=== PATIENT | male | born 1945 | race Caucasian/White ===

== ENCOUNTER → 2021-12-28 08:10 | Outpatient (CLI) | payer MEDICARE, SELFPAY ==
[2021-12-28 19:03] LABS: Albumin 5.1 g/dL (3.5-5.0); Albumin Globulin Ratio 1.5 (1.0-2.8); Alkaline Phosphatase 91 U/L (38-126); Aspartate Aminotransferase 49 IU/L (17-59); Blood Urea Nitrogen 17 mg/dL (9-20); Calcium 9.8 mg/dL (8.4-10.2); Carbon Dioxide 16 mmol/L (22-32); Chloride 101 mmol/L (98-107); Cholesterol 205 mg/dL (140-199); Estimated Glomerular Filt Rate > 60.0 mL/min (>60); Globulin 3.4 g/dL (1.7-4.1); Glucose 160 mg/dL (80-110); HDL Cholesterol 49 mg/dL (40-60); HEMOLYSIS < 15 (0-50); LDL Cholesterol Calculated 137 mg/dL (<100); Potassium 3.6 mmol/L (3.4-5.1); Sodium 141 mmol/L (137-145); Total Protein 8.5 g/dL (6.3-8.2); Triglycerides 95 mg/dL (35-150)
[2021-12-28 19:09] LABS: Alanine Aminotransferase 45 IU/L (<50)
[2021-12-28 19:15] LABS: Add Manual Diff / Slide Review NO; Basophils Absolute Auto 100 /uL (0-100); Basophils Percent Auto 1.1 % (0-2); Eosinophils Absolute Auto 200 /uL (0-450); Eosinophils Percent Auto 1.6 % (2-4); Hematocrit 39.4 % (41-53); Hemoglobin 13.3 g/dL (13.5-17.5); Lymphocytes Absolute Auto 4000 /uL (1100-4500); Lymphocytes Percent Auto 41.9 % (25-40); Mean Corpuscular HGB Conc 33.7 % (30-36); Mean Corpuscular Hemoglobin 32.9 PG (26-34); Mean Corpuscular Volume 97.5 fL (80-100); Monocytes Absolute Auto 1300 /uL (0-900); Monocytes Percent Auto 13.9 % (3-14); Neutrophils Absolute Auto 4000 /uL (1500-7000); Neutrophils Percent Auto 41.5 % (50-75); Platelet Count 282 X10^3/uL (150-400); Red Blood Cell Count 4.05 X10^6/uL (4.5-5.9); Red Cell Distribution Width 14.5 % (11.6-14.8); White Blood Cell Count 9.5 X10^3/uL (4.5-11.0)
[2021-12-28 19:20] LABS: TSH w/ Reflex to FT4 4.52 uIU/mL (0.47-4.68)
== END ==
PROVIDERS: Family Provider Family Medicine; PCP Physician Assistant; Visit Provider Physician Assistant
DX: Z12.5 Encounter for screening for malignant neoplasm of prostate (principal); Z79.899 Other long term (current) drug therapy; E03.9 Hypothyroidism, unspecified; E78.00 Pure hypercholesterolemia, unspecified; I10 Essential (primary) hypertension
CPT/HCPCS: 80053; 80061; 84443; 85025; G0103

== ENCOUNTER → 2022-01-12 12:37 | Outpatient (CLI) | payer MEDICARE, SELFPAY ==
--- NOTE | 2022-02-02 15:32 | PM.CARDMON.1 ---
Sand Technician Report Referral & Results Date Patient Seen: 01/12/22 Requesting provider: Sarah Zamudio Indication: Palpitations Duration of monitoring (days): 14 Diary information: There was 1 patient event associated with sinus rhythm only Data: Minimum heart rate identified was 30 beats per minute at 07:13 on 01/15/2022 Maximum sinus heart rate was 153 beats per minute at 21:08 on 01/13/2022 Maximum overall heart rate was 172 beats per minute at 14:26 on 01/14/2022 during a run of atrial fibrillation Patient did have atrial fibrillation identified on this study that was less than 1% of identified beats. Heart rate 95-172 beats per minute and the longest duration was 12 minutes and 24 seconds long There were 37 episodes of SVT the fastest being the 4 beat run at 156 beats per minute the longest lasting 12.8 seconds Less than 1% of identified beats were ventricular or supraventricular ectopic in origin, which would classify them as rare. Impression: 14 day registered nurse cardiac demonstrating rare episodes of atrial fibrillation as above. Also with very rare very brief runs of SVT Clinical correlation suggested
== END ==
PROVIDERS: Family Provider Family Medicine; PCP Physician Assistant; Referring Provider Physician Assistant; Visit Provider Physician Assistant
DX: R00.2 Palpitations (principal)
CPT/HCPCS: 93246; 93248

== ENCOUNTER → 2022-03-21 07:07 | Outpatient (CLI) | payer MEDICARE, SELFPAY ==
[2022-03-21 19:14] LABS: COVID19 - ORCAS (NP or Nasal) Negative (Negative)
== END ==
PROVIDERS: Family Provider Family Medicine; PCP Physician Assistant; Visit Provider Physician Assistant
DX: Z20.822 Contact with and (suspected) exposure to COVID-19 (principal)
CPT/HCPCS: C9803; U0003

== ENCOUNTER 2022-03-23 09:38 | Day surgery (SDC) | payer MEDICARE, SELFPAY ==
[2022-03-23] VITALS (7 sets, daily range): BP systolic 90–152; BP diastolic 46–77; PULSE 15–85; RESP 12–16; TEMP 36.4–37.3; O2SAT 97–100; BMI 25.9
--- NOTE | 2022-03-23 | PATH_ITS ---
[facility] Accession Number: [id number] . 01 Material submitted: . colon - DESCENDING COLON POLYP . 01 Diagnosis: Descending Colon, Polyp, Biopsy: Tubular adenoma. MRV 03/27/2022 1733 Local . 01 Electronically signed: . Miguelina Patel MD, Pathologist NPI- [id number] . 01 Gross description: . DESCENDING COLON POLYP: Received in formalin are 2 fragment(s) of staples, soft tissue measuring 0.7 x 0.5 x 0.1 cm to 0.2 x 0.1 x 0.1 cm submitted entirely in 1 cassette(s) /CPE 03/24/2022 0828 Local . 01 Pathologist provided ICD-10: D12.4 . 01 CPT . 524864 Performed at: 01 [facility] [address] [place] [id number] MD Nehemias Oglesby MD Phone: [phone]
[2022-03-23] MEDS: LACTATED RINGERS 1,000 ML 42 ML IV (10:53)
--- NOTE | 2022-03-23 12:06 | PM.HP.1 ---
History of Present Illness History of Present Illness Date Patient Seen: 03/23/22 Time Patient Seen: 12:07 Chief complaint: DX COLONOSCOPY Narrative: Power is a 76-year-old man who has never had a colonoscopy. He had a recent positive Cologuard test. He was having several episodes of constipation with hard bowel movements prior to that test being performed. He has no known family members with colon cancer. Patient History Medical History Cataracts, bilateral (~2018) Chicken pox Counseling, unspecified Mumps Skin spots, red Family & Social History Family History Father History of heart disease Hypertension Mother Hypertension Shingles Brother History of heart disease Grandfather History of heart disease Grandmother History of heart disease Grandfather Cancer History of heart disease Grandmother Renal failure Tobacco & Substance use: Tobacco type cigarettes Smoking Status Never smoker alcohol intake frequency holiday/special occasion Substance Use Type does not use Meds Home Medications and Allergies Home Medications Medication Instructions Recorded Confirmed Type aspirin 81 mg tablet,delayed 81 mg PO DAILY 12/14/21 03/23/22 History release lisinopril 20 mg tablet 20 mg PO DAILY #90 tabs 02/13/22 03/23/22 Rx sodium,potassium,mag sulfates 17.5 See Rx Instructions PO .COMPLEX 03/06/22 Rx gram-3.13 gram-1.6 gram oral soln #354 mL (Suprep Bowel Prep Kit) Allergies Allergy/AdvReac Type Severity Reaction Status Date / Time No Known Drug Allergies Allergy Verified 02/13/22 10:33 Exam Vital Signs (past 8 hours): - 03/23/22 10:32 Temperature 97.7 F Pulse Rate 85 Respiratory Rate 16 Blood Pressure 152/77 H Pulse Oximetry 99 Oxygen Delivery Method Room Air Oxygen Delivery Method Room Air Const General: comfortable Resp Effort & Inspection: normal respiratory effort Assessment & Plan Assessment and plan (1) Colon cancer screening: Status: Acute Plan 76-year-old man who is here for colon cancer screening today. We reviewed the risks, benefits and rationale for a colonoscopy and he would like to proceed. COVID-19 COVID-19 status: Negative Result date/Date tested (Pos, Neg/Pending): 03/22/22 Time Spent With Patient Critical Care time: I spent a total of [] minutes of critical care time on this patient's care today; this time is exclusive of procedural time.
[2022-03-23] MEDS: fentaNYL 250 MCG/5 ML INJ 175 MCG IV (12:22)
[2022-03-23] MEDS: MIDAZOLAM 5 MG/5 ML VIAL 6 MG IV (12:22)
--- NOTE | 2022-03-23 12:41 | P.OP.COLON_ITS ---
Operative Date/Time/Diagnoses Date of procedure: 03/23/22 Time of procedure: 12:41 Pre-op diagnosis: Positive Cologuard test Post-op diagnosis: same Procedure & Clinicians Surgeon: Juan Daniel Lin Procedure Notes Procedure in detail: Surgeon: Juan Daniel Lin MD Procedure: The patient was brought to the endoscopy suite, placed in left lateral decubitus position. The patient was connected to monitoring devices. A time-out was performed. Sedation was administered. Once the patient was adequately sedated, a digital rectal exam was performed and was normal. The s cope was then inserted and advanced to the cecum where the appendiceal orifice was identified and photographed. The scope was then slowly withdrawn over greater than 6 minutes. The mucosa was thoroughly inspected. There was 1 small polyp in the descending colon which was about 6 mm. This was removed with a cold snare. The scope was retroflexed in the rectum. No abnormalities were noted. The scope was straightened and removed. The patient was awakened and brought to recovery. Versed: 6 mg Fentanyl: 175 mcg EBL: 5 mL Findings: Descending colon polyp about 6 mm Scope withdrawal time: 11 Sedation minutes: 26 Post-procedure Recommendations: Will call with biopsy results Disposition: PACU
== END 2022-03-23 13:37 | disposition home or self-care (01) ==
PROVIDERS: Family Provider Family Medicine; PCP Physician Assistant; Referring Provider Surgery; Visit Provider Surgery
PROC: 0DJD8ZZ Inspection of Lower Intestinal Tract, Via Natural or Artificial Opening Endoscopic (ICD-10-PCS; CPT 45378; principal; 2022-03-23 11:30)
DX: D12.4 Benign neoplasm of descending colon (principal)
CPT/HCPCS: 45385; 99152; 99153; J2250; J3010

== ENCOUNTER → 2022-12-11 14:27 | Outpatient (CLI) | payer MEDICARE, SELFPAY ==
--- NOTE | 2022-12-11 14:29 | DI.US.S_ITS ---
PROCEDURE: US SCROTUM INDICATIONS: RIGHT SCROTAL ACHING AND SWELLING TECHNIQUE: Real-time scanning was performed of the scrotum and testicles, with image documentation. Color and pulse Doppler interrogation was performed of both testicles. COMPARISON: None. FINDINGS: Right: Testicle is normal in size at 2.7 x 2.3 x 2.9 cm, and homogenous in echotexture. Epididymis is normal in overall size and morphology. Trace hydrocele noted. Overlying scrotal skin is normal in thickness. 1.8 x 1.6 x 2.5 cm epididymal cyst Left: Testicle is normal in size at 2.5 x 1.6 x 2.7 cm, and homogeneous in echotexture. Epididymis is normal in overall size and morphology. No hydrocele or varicoceles. Overlying scrotal skin is normal in thickness. Small epididymal cyst measures 0.6 x 0.5 x 0.4 cm Doppler: Color and pulse Doppler demonstrate normal and symmetric arterial flow in both testicles. IMPRESSION: 2.5 cm right epididymal cyst Approved by: Quoc Gregorio M.D. on 12/11/2022 at 17:58
== END ==
PROVIDERS: Family Provider Family Medicine; PCP Physician Assistant; Referring Provider Physician Assistant; Visit Provider Physician Assistant
DX: N50.3 Cyst of epididymis (principal); N50.811 Right testicular pain
CPT/HCPCS: 76870

== ENCOUNTER → 2023-02-13 09:48 | Outpatient (CLI) | payer MEDICARE, SELFPAY ==
[2023-02-13 19:15] LABS: Add Manual Diff / Slide Review NO; Basophils Absolute Auto 0 /uL (0-100); Basophils Percent Auto 0.6 % (0-2); Eosinophils Absolute Auto 100 /uL (0-450); Eosinophils Percent Auto 1.7 % (2-4); Hematocrit 34.2 % (41-53); Hemoglobin 11.8 g/dL (13.5-17.5); Lymphocytes Absolute Auto 900 /uL (1100-4500); Lymphocytes Percent Auto 27.4 % (25-40); Mean Corpuscular HGB Conc 34.6 % (30-36); Mean Corpuscular Hemoglobin 33.6 PG (26-34); Mean Corpuscular Volume 96.9 fL (80-100); Monocytes Absolute Auto 300 /uL (0-900); Monocytes Percent Auto 10.5 % (3-14); Neutrophils Absolute Auto 2000 /uL (1500-7000); Neutrophils Percent Auto 59.8 % (50-75); Platelet Count 172 X10^3/uL (150-400); Red Blood Cell Count 3.52 X10^6/uL (4.5-5.9); Red Cell Distribution Width 14.1 % (11.6-14.8); White Blood Cell Count 3.3 X10^3/uL (4.5-11.0)
[2023-02-13 19:23] LABS: HEMOLYSIS < 15 (0-50); Iron 80 ug/dL (49-181)
[2023-02-13 19:27] LABS: Cholesterol 171 mg/dL (140-199); HDL Cholesterol 49 mg/dL (40-60); LDL Cholesterol Calculated 102 mg/dL (<100); Triglycerides 99 mg/dL (35-150)
[2023-02-13 19:29] LABS: Alanine Aminotransferase 32 IU/L (<50); Albumin 4.1 g/dL (3.5-5.0); Albumin Globulin Ratio 1.3 (1.0-2.8); Alkaline Phosphatase 94 U/L (38-126); Aspartate Aminotransferase 38 IU/L (17-59); Bilirubin Total 1.4 mg/dL (0.2-1.3); Blood Urea Nitrogen 15 mg/dL (9-20); Calcium 8.9 mg/dL (8.4-10.2); Carbon Dioxide 28 mmol/L (22-32); Chloride 103 mmol/L (98-107); Estimated Glomerular Filt Rate > 60 mL/min (>60); Globulin 3.2 g/dL (1.7-4.1); Glucose 91 mg/dL (80-110); HEMOLYSIS < 15 (0-50); Potassium 4.1 mmol/L (3.4-5.1); Sodium 139 mmol/L (137-145); Total Protein 7.3 g/dL (6.3-8.2)
[2023-02-13 19:33] LABS: Percent Iron Saturation 31 % (20-50); Total Iron Binding Capacity 262 ug/dL (261-462); Transferrin 203 mg/dL (206-381)
[2023-02-13 19:58] LABS: Prostate Specific Antigen Scrn 1.51 ng/mL (0.1-4.0)
[2023-02-13 19:59] LABS: Ferritin 143 ng/mL (18-464)
[2023-02-15 09:09] LABS: x Labcorp Estim. Avg Glu (eAG) 100 mg/dL (.); x Labcorp Hemoglobin A1c 5.1 % (4.8-5.6)
== END ==
PROVIDERS: Family Provider Family Medicine; PCP Physician Assistant; Visit Provider Physician Assistant
DX: I10 Essential (primary) hypertension; D49.2 Neoplasm of unspecified behavior of bone, soft tissue, and skin; Z12.5 Encounter for screening for malignant neoplasm of prostate; D64.9 Anemia, unspecified; E03.9 Hypothyroidism, unspecified; I49.1 Atrial premature depolarization; I49.9 Cardiac arrhythmia, unspecified; R17 Unspecified jaundice; R19.5 Other fecal abnormalities; R73.9 Hyperglycemia, unspecified; E78.00 Pure hypercholesterolemia, unspecified
CPT/HCPCS: 80053; 80061; 82728; 83036; 83540; 83550; 85025; G0103

== ENCOUNTER → 2023-02-16 13:38 | Outpatient (CLI) | payer MEDICARE, SELFPAY ==
[2023-02-19 16:51] LABS: Fecal Immunochemical Test Positive (Negative)
== END ==
PROVIDERS: Family Provider Family Medicine; PCP Physician Assistant; Visit Provider Physician Assistant
DX: D64.9 Anemia, unspecified (principal); Z12.11 Encounter for screening for malignant neoplasm of colon
CPT/HCPCS: 82274

== ENCOUNTER → 2023-02-19 08:22 | Outpatient (CLI) | payer MEDICARE, SELFPAY ==
[2023-02-19 20:07] LABS: Hematocrit 35.9 % (41-53); Hemoglobin 12.4 g/dL (13.5-17.5); Mean Corpuscular HGB Conc 34.5 % (30-36); Mean Corpuscular Hemoglobin 33.1 PG (26-34); Mean Corpuscular Volume 95.9 fL (80-100); Platelet Count 206 X10^3/uL (150-400); Red Blood Cell Count 3.74 X10^6/uL (4.5-5.9); Red Cell Distribution Width 13.8 % (11.6-14.8); White Blood Cell Count 3.8 X10^3/uL (4.5-11.0)
[2023-02-19 21:01] LABS: Neutrophils Absolute Manual 2204 /uL (3000-5900); Total Cells Counted 100
[2023-02-19 21:02] LABS: RBC Morphology Normal Morphology
[2023-02-19 21:12] LABS: Vitamin B12 477 pg/mL (239-931)
== END ==
PROVIDERS: Family Provider Family Medicine; PCP Physician Assistant; Visit Provider Physician Assistant
DX: R79.9 Abnormal finding of blood chemistry, unspecified (principal); D64.9 Anemia, unspecified
CPT/HCPCS: 82607; 85025

== ENCOUNTER 2023-03-14 12:43 | Day surgery (SDC) | payer MEDICARE, SELFPAY ==
--- NOTE | 2023-03-14 | PATH_ITS ---
[facility] Accession Number: [id number] No. of containers..03 Tissue . 01 Material submitted: . PART A: duodenum - DUODENAL BIPSY PART B: stomach - PROXIMAL GREATER CURVE PART C: esophagus - ESOPHAGUS BIOPSY . 01 Clinical history: . A)R/O CELIAC B) GASTRITIS . 01 Diagnosis: A. Duodenum, Biopsy: Duodenal mucosa with no diagnostic abnormality. Negative for active inflammation, features of sprue, dysplasia, or malignancy. . B. Proximal Greater Curve, Stomach Biopsy: Acute erosive gastritis. No evidence of Helicobacter on H/E stain. Negative for intestinal metaplasia. Negative for dysplasia and malignancy. Please see comment. . C. 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 Negative for dysplasia and malignancy. [facility] 03/19/2023 1224 Local . 01 Comment: An immunohistochemical stain for Helicobacter will be performed and the results reported as an addendum. . 01 Electronically signed: . Miguelina Patel MD, Pathologist NPI- [id number] . 01 Gross description: . Part A: DUODENAL BIPSY: Received in formalin are 2 fragment(s) of staples, soft tissue measuring 0.1 x 0.1 x 0.1 cm to 0.3 x 0.2 x 0.2 cm submitted entirely in 1 cassette(s) Part B: PROXIMAL GREATER CURVE : Received in formalin are multiple fragment(s) of staples, soft tissue measuring 0.1 x 0.1 x 0.1 cm to 0.4 x 0.2 x 0.2 cm submitted entirely in 1 cassette(s) Part C: ESOPHAGUS BIOPSY: Received in formalin is 2 fragment(s) of staples, soft tissue measuring 0.1 x 0.1 x 0.1 cm to 0.2 x 0.2 x 0.2 cm submitted entirely in 1 cassette(s) /HILARIO 03/16/2023 [facility] . 01 Pathologist provided ICD-10: K29.50, D50.0, K22.70 . 01 CPT . 364256, 129124, 910532, W07531 Specimen Comment: A courtesy copy of this report has been sent to [phone] Performed at: 01 [facility] [address] [place] [address], [place], [place] [id number] MD Nehemias Oglesby MD Phone: [phone]
[2023-03-14 13:16] VITALS: BP 126/67; PULSE 106; RESP 17; TEMP 36.1; O2SAT 99; BMI 25.3
[2023-03-14] MEDS: LACTATED RINGERS 1,000 ML 42 ML IV (13:24)
--- NOTE | 2023-03-14 13:39 | PM.PREOP ---
Pre-operative Note COVID-19 COVID-19 status: Negative Interval Note History & Physical reviewed/Exam performed by Physician: Yes Changes to H&P: No ASA Class (for procedural sedation): III
--- NOTE | 2023-03-14 13:40 | P.OP.EGD_ITS ---
Operative Date/Time/Diagnoses Date of procedure: 03/14/23 Pre-op diagnosis: See indication and findings Procedure & Clinicians Study performed: EGD Indications: Cologuard positive stools with anemia and negative colonoscopy Surgeon: Kevin Jarrell Procedure Notes Procedure in detail: After informed consent was obtained the patient was placed in left lateral decubitus position. Video upper scope was placed into the oropharynx and with the patient's help swallowed into the esophagus. The esophagus stomach and d uodenum were carefully examined. On withdrawal, retroflexed view the GE junction was performed. The scope was removed. The patient tolerated procedure well. Blood loss none Complications none Sedation mac Findings 1. Normal body of the esophagus. The squamocolumnar junction was perfectly circular except for 1 small aspect of pink tissue that extended 3 mm above this line. This area was biopsied to rule out Patel's 2. In the very proximal greater curve of the stomach was very focal gastritis of 3 folds. Erosions were present as were some attached hematin flecks. This may be related to his aspirin. Biopsies were taken. 3. Normal distal stomach 4. Normal duodenal bulb and sweep biopsies taken to rule out celiac We will merely await biopsies but in the meantime he can start omeprazole or Nexium [id number] once daily.
[2023-03-14 14:06] VITALS: BP 82/42; PULSE 79; RESP 12; TEMP 36.5; O2SAT 94
[2023-03-14 14:14] VITALS: BP 88/41; PULSE 83; RESP 16; O2SAT 97
[2023-03-14 14:16] VITALS: BP 94/50; PULSE 85; RESP 12; O2SAT 97
[2023-03-14 14:21] VITALS: BP 124/65; PULSE 83; RESP 12; O2SAT 96
[2023-03-14 14:22] VITALS: BP 117/68; PULSE 89; RESP 14; TEMP 36.6; O2SAT 96
== END 2023-03-14 14:43 | disposition home or self-care (01) ==
PROVIDERS: Family Provider Family Medicine; PCP Physician Assistant; Referring Provider Internal Medicine Gastroenterology; Visit Provider Internal Medicine Gastroenterology
PROC: 0DJ08ZZ Inspection of Upper Intestinal Tract, Via Natural or Artificial Opening Endoscopic (ICD-10-PCS; CPT 43235; principal; 2023-03-14 14:00)
DX: D50.0 Iron deficiency anemia secondary to blood loss (chronic) (principal); R19.5 Other fecal abnormalities; K29.00 Acute gastritis without bleeding; K22.70 Barrett's esophagus without dysplasia
CPT/HCPCS: 43239; J2704

== ENCOUNTER → 2024-03-06 09:30 | Outpatient (CLI) | payer MEDICARE, SELFPAY ==
[2024-03-06 21:43] LABS: Add Manual Diff / Slide Review NO; Basophils Absolute Auto 0 /uL (0-100); Basophils Percent Auto 0.5 % (0-2); Eosinophils Absolute Auto 100 /uL (0-450); Eosinophils Percent Auto 1.3 % (2-4); Hematocrit 35.7 % (41-53); Hemoglobin 12.3 g/dL (13.5-17.5); Lymphocytes Absolute Auto 1200 /uL (1100-4500); Lymphocytes Percent Auto 21.5 % (25-40); Mean Corpuscular HGB Conc 34.4 % (30-36); Mean Corpuscular Hemoglobin 33.5 PG (26-34); Mean Corpuscular Volume 97.6 fL (80-100); Monocytes Absolute Auto 600 /uL (0-900); Monocytes Percent Auto 10.4 % (3-14); Neutrophils Absolute Auto 3500 /uL (1500-7000); Neutrophils Percent Auto 66.3 % (50-75); Platelet Count 220 X10^3/uL (150-400); Red Blood Cell Count 3.66 X10^6/uL (4.5-5.9); Red Cell Distribution Width 13.2 % (11.6-14.8); White Blood Cell Count 5.3 X10^3/uL (4.5-11.0)
[2024-03-06 22:34] LABS: BUN Creatinine Ratio 27.4 (6-22); Blood Urea Nitrogen 23 mg/dL (9-20); Calcium 9.1 mg/dL (8.4-10.2); Carbon Dioxide 27 mmol/L (22-32); Chloride 107 mmol/L (98-107); Cholesterol 165 mg/dL (140-199); Estimated Glomerular Filt Rate > 60 mL/min (>60); Glucose 108 mg/dL (80-110); HDL Cholesterol 59 mg/dL (40-60); HEMOLYSIS < 15 (0-50); LDL Cholesterol Calculated 87 mg/dL (<100); Potassium 4.5 mmol/L (3.4-5.1); Sodium 141 mmol/L (137-145); Triglycerides 96 mg/dL (35-150)
[2024-03-06 23:04] LABS: Prostate Specific Antigen Scrn 1.17 ng/mL (0.1-4.0)
== END ==
PROVIDERS: Family Provider Family Medicine; PCP Physician Assistant; Visit Provider Family Medicine
DX: Z12.5 Encounter for screening for malignant neoplasm of prostate (principal); I10 Essential (primary) hypertension; M17.11 Unilateral primary osteoarthritis, right knee; D64.9 Anemia, unspecified; M17.0 Bilateral primary osteoarthritis of knee; Z86.79 Personal history of other diseases of the circulatory system
CPT/HCPCS: 80048; 80061; 85025; G0103

== ENCOUNTER → 2024-03-31 10:07 | Outpatient (CLI) | payer MEDICARE, SELFPAY ==
[2024-03-31 19:47] LABS: HEMOLYSIS < 15 (0-50); Iron 95 ug/dL (49-181)
[2024-03-31 20:00] LABS: Percent Iron Saturation 37 % (20-50); Total Iron Binding Capacity 259 ug/dL (261-462); Transferrin 197 mg/dL (206-381)
[2024-03-31 20:22] LABS: Thyroid Stimulating Hormone 1.86 uIU/mL (0.47-4.68)
[2024-03-31 20:45] LABS: Vitamin B12 465 pg/mL (239-931)
== END ==
PROVIDERS: Family Provider Family Medicine; PCP Physician Assistant; Visit Provider Family Medicine
DX: D64.9 Anemia, unspecified (principal)
CPT/HCPCS: 82607; 83540; 83550; 84443

== ENCOUNTER 2024-08-22 06:27 | Day surgery (SDC) | payer MEDICARE, SELFPAY ==
[2024-08-21 14:30] VITALS: BMI 26.7
[2024-08-22] VITALS (7 sets, daily range): BP systolic 125–168; BP diastolic 62–85; PULSE 65–93; RESP 11–20; TEMP 36.2–36.8; O2SAT 94–97; BMI 26.7
--- NOTE | 2024-08-22 07:16 | SUR.OPER ---
Supine on padded OR bed, head on pillow, arms secured on padded arm boards at <90 degrees abduction, legs uncrossed, safety belt at thigh, tape over blanket over lower legs.
[2024-08-22] MEDS: ACETAMINOPHEN 325 MG TABLET 975 MG PO (07:23)
[2024-08-22] MEDS: LACTATED RINGERS 1,000 ML 42 ML IV (07:24)
--- NOTE | 2024-08-22 07:35 | PM.PREOP ---
Pre-operative Note COVID-19 COVID-19 status: Not tested Interval Note History & Physical reviewed/Exam performed by Physician: Yes Changes to H&P: No
[2024-08-22] MEDS: CEFAZOLIN 2 GM/100 ML PREMIX 100 ML IV (07:48)
[2024-08-22] MEDS: BUPIVACAINE 0.5% (PF) 30 ML VIAL INJ (08:04)
[2024-08-22] MEDS: LIDOCAINE 1% 20 ML INJ (08:05)
[2024-08-22] MEDS: BACITRACIN OINT 0.9 GM PCKT 1 APPLIC TOP (08:39)
--- NOTE | 2024-08-22 09:13 | P.OP_ITS ---
Procedure & Clinicians Procedure: Right spermatocelectomy Same procedure as scheduled: Yes Indications: 78 y/o M noted to have a large right spermatocele that causes him regular pain/discomfort and strongly desires surgical excision via a right spermatocelectomy. Surgeon: Tyrone Canela Click Yes if Unassisted: Yes Anesthesia Type: General Operative Notes Findings: Large right spermatocele Closure Type: primary Specimen(s): none sent Estimated Blood Loss (mL): 3 Blood products transfused: none Procedure in detail: Patient was identified in the preoperative holding area and consent confirmed. He was then brought to the operating room and placed supine on the operating room table where general anesthesia was induced. All bony prominences were then properly padded and he was prepped and draped in the standard sterile fashion. A surgical timeout was conducted and all members of the operating team were in agreement. A 4cm transverse incision was marked on the right hemiscrotum using a marking pen. This was then incised using a 15 blade. The dissection was then carried down through the subcutaneous tissue and dartos fascia using bovie electrocaut jesus alberto. The testicle was then delivered onto the operative field through the incision. The tunica vaginalis was then incised using Bovie electrocautery and attention was turned to the large right spermatocele. This was dissected free from the surrounding epididymis and tunica vaginalis and the stalk from which it arised was isolated. This was ligated using 3-0 silk ties. The spermatocele sac was then excised. Throughout the entire procedure, care was taken to avoid the right testicle and spermatic cord, which were both preserved at case end. The tunica vaginalis overlying the right epididymis was then closed using 3-0 Vicryl in a running fashion. The scrotum was then inspected for hemostasis, which was noted to be excellent. A benson drain was then brought out the inferior most portion of his right hemiscrotum and secured to the skin using a 3-0 Nylon stitch. The right testicle was placed back into the right hemiscrotum in correct anatomic position and without twisting of the spermatic cord. The incision was then closed in two separate layers. Dartos was reapproximated using 3-0 Vicryl in a running fashion. The skin edges were then reapproximated using 3-0 Chromic in a running baseball stitch fashion. Bacitracin was then applied to the incision. A total of 20cc of 1:1 mixture of 1% Lidocaine plain and 0.5% Marcaine plain was used for incision and cord block anesthetic. Fluff gauze and scrotal support was then placed over the incision. Anesthesia was reversed, he was extubated in the OR and transferred to the PACU in stable condition for recovery. Complications: none Post-operative Condition: stable Disposition: PACU Plan for aftercare: Discharge home from PACU. Will return to Urology clinic in 6-8 weeks for a wound check and postoperative appointment.
== END 2024-08-22 09:48 | disposition home or self-care (01) ==
PROVIDERS: Family Provider Family Medicine; PCP Physician Assistant; Referring Provider Urology; Visit Provider Urology
PROC: (CPT 54840; principal; 2024-08-22 07:45)
DX: N43.41 Spermatocele of epididymis, single (principal)
CPT/HCPCS: 54840; J0690; J1100; J2405; J2704; J3010

== ENCOUNTER → 2025-01-22 13:37 | Outpatient (CLI) | payer MEDICARE, SELFPAY ==
[2025-01-22 19:29] LABS: Add Manual Diff / Slide Review NO; Basophils Absolute Auto 0 /uL (0-100); Basophils Percent Auto 0.4 % (0-2); Eosinophils Absolute Auto 0 /uL (0-450); Eosinophils Percent Auto 1.2 % (2-4); Hemoglobin 12.6 g/dL (13.5-17.5); Lymphocytes Absolute Auto 1100 /uL (1100-4500); Lymphocytes Percent Auto 26.7 % (25-40); Mean Corpuscular HGB Conc 34.9 % (30-36); Mean Corpuscular Hemoglobin 33.4 PG (26-34); Mean Corpuscular Volume 95.5 fL (80-100); Monocytes Absolute Auto 400 /uL (0-900); Neutrophils Absolute Auto 2500 /uL (1500-7000); Neutrophils Percent Auto 61.7 % (50-75); Platelet Count 192 X10^3/uL (150-400); Red Blood Cell Count 3.77 X10^6/uL (4.5-5.9); Red Cell Distribution Width 13.8 % (11.6-14.8); White Blood Cell Count 4.1 X10^3/uL (4.5-11.0)
[2025-01-22 19:33] LABS: HEMOLYSIS < 15 (0-50); Iron 66 ug/dL (49-181)
[2025-01-22 19:35] LABS: Alanine Aminotransferase 18 IU/L (<50); Albumin Globulin Ratio 1.4 (1.0-2.8); Alkaline Phosphatase 95 U/L (38-126); Aspartate Aminotransferase 26 IU/L (17-59); BUN Creatinine Ratio 14.5 (6-22); Bilirubin Total 0.6 mg/dL (0.2-1.3); Blood Urea Nitrogen 12 mg/dL (9-20); Carbon Dioxide 31 mmol/L (22-32); Chloride 105 mmol/L (98-107); Estimated Glomerular Filt Rate > 60 mL/min (>60); Globulin 2.8 g/dL (1.7-4.1); Glucose 113 mg/dL (80-110); HEMOLYSIS < 15 (0-50); Sodium 141 mmol/L (137-145); Total Protein 6.8 g/dL (6.3-8.2)
[2025-01-22 19:52] LABS: Percent Iron Saturation 25 % (20-50); Total Iron Binding Capacity 268 ug/dL (261-462); Transferrin 205 mg/dL (206-381)
== END ==
PROVIDERS: Family Provider Family Medicine; PCP Physician Assistant; Visit Provider Physician Assistant
DX: D64.9 Anemia, unspecified (principal); I10 Essential (primary) hypertension
CPT/HCPCS: 80053; 83540; 83550; 85025

== ENCOUNTER → 2025-02-25 08:59 | Outpatient (CLI) | payer MEDICARE, SELFPAY ==
[2025-02-26 11:12] LABS: Fecal Immunochemical Test Negative (Negative)
== END ==
PROVIDERS: Family Provider Family Medicine; PCP Physician Assistant; Visit Provider Physician Assistant
DX: Z12.11 Encounter for screening for malignant neoplasm of colon (principal)
CPT/HCPCS: 82274

== ENCOUNTER → 2025-03-04 13:05 | Outpatient (CLI) | payer MEDICARE, SELFPAY ==
[2025-03-04 20:24] LABS: Add Manual Diff / Slide Review NO; Basophils Absolute Auto 0 /uL (0-100); Basophils Percent Auto 0.4 % (0-2); Eosinophils Absolute Auto 0 /uL (0-450); Eosinophils Percent Auto 0.5 % (2-4); Hematocrit 36.4 % (41-53); Hemoglobin 12.4 g/dL (13.5-17.5); Lymphocytes Absolute Auto 1000 /uL (1100-4500); Lymphocytes Percent Auto 20.6 % (25-40); Mean Corpuscular HGB Conc 34.1 % (30-36); Mean Corpuscular Hemoglobin 32.9 PG (26-34); Mean Corpuscular Volume 96.5 fL (80-100); Monocytes Absolute Auto 500 /uL (0-900); Monocytes Percent Auto 10.8 % (3-14); Neutrophils Absolute Auto 3300 /uL (1500-7000); Neutrophils Percent Auto 67.7 % (50-75); Platelet Count 226 X10^3/uL (150-400); Red Blood Cell Count 3.77 X10^6/uL (4.5-5.9); White Blood Cell Count 4.8 X10^3/uL (4.5-11.0)
[2025-03-04 20:30] LABS: HEMOLYSIS < 15 (0-50); Iron 93 ug/dL (49-181)
[2025-03-04 20:39] LABS: Alanine Aminotransferase 31 IU/L (<50); Albumin 4.2 g/dL (3.5-5.0); Albumin Globulin Ratio 1.5 (1.0-2.8); Alkaline Phosphatase 89 U/L (38-126); Aspartate Aminotransferase 32 IU/L (17-59); BUN Creatinine Ratio 16.7 (6-22); Bilirubin Total 0.9 mg/dL (0.2-1.3); Blood Urea Nitrogen 17 mg/dL (9-20); Calcium 8.8 mg/dL (8.4-10.2); Carbon Dioxide 28 mmol/L (22-32); Chloride 105 mmol/L (98-107); Estimated Glomerular Filt Rate > 60 mL/min (>60); Globulin 2.8 g/dL (1.7-4.1); Glucose 115 mg/dL (70-99); HEMOLYSIS < 15 (0-50); Potassium 4.1 mmol/L (3.4-5.1); Sodium 140 mmol/L (137-145)
[2025-03-04 21:08] LABS: Percent Iron Saturation 35 % (20-50); Total Iron Binding Capacity 265 ug/dL (261-462); Transferrin 210 mg/dL (206-381)
[2025-03-04 21:45] LABS: Vitamin B12 403 pg/mL (239-931)
== END ==
PROVIDERS: Family Provider Family Medicine; PCP Physician Assistant; Visit Provider Physician Assistant
DX: D64.9 Anemia, unspecified (principal); I10 Essential (primary) hypertension; R17 Unspecified jaundice
CPT/HCPCS: 80053; 82607; 83540; 83550; 85025